=== PATIENT | female | born 1995 | race Caucasian/White ===

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

== ENCOUNTER 2017-01-05 12:09 | Emergency (ER) | payer OTHER ==
[~2017-01-05 12:09] MED LIST changes: +CLIN1CAP6 PO
--- NOTE | 2017-01-05 13:32 | PD ---
HPI Chief Complaint Spotting Date Seen: Jan 05, 2017 Time Seen: 13:15 (Reshma Cagle MD R1) Travel History International Travel<30 Days: No Contact w/Intl Traveler<30Days: No Known Affected Area: No (Reshma Cagle MD R1) History of Present Illness HPI Patient is a 21 y/o at 38 weeks and 2 days who presents to OB triage complaining of bright red spotting since yesterday. Patient was checked in OB office yesterday; she was told that her cervix had "thinned out" and provider was able to "fit two finger tips." Patient states that since the visit she has experienced some bright red, stringy mucus discharge, she had noticed when wiping. She denies vaginal bleeding, gush of fluids. She is unsure if she is experiencing contractions. She endorses movement. She complains of lower back pain and inner thigh cramps. She admits to increased frequency of urination. She denies burning with urination or blood in urine. She denies nausea and vomiting. She denies diarrhea and constipation. She denies fever and chills. She has received regular care. There have been no concerns during this . She was recently given clindamycin to treat a bacterial infection. On record, she is GBS positive. Para: 0 : 1 (Reshma Cagle MD R1) History Past Medical History Narrative Medical History of concussion History of depression - has not been on antidepressants for a year and a half ( Reshma Cagle MD R1) Obstetric History Obstetric History GI: Current, no complications (Reshma Cagle MD R1) Past Surgical History Surgical History: No Previous Surgery (Reshma Cagle MD R1) Family History Family History: Negative (Reshma Cagle MD R1) Social History Alcohol Use: No (not during , social drinker before ) Tobacco Use: Yes (1/2 pack/day) Substance Abuse: No (Reshma Cagle MD R1) Allergies-Medications (Allergen,Severity, Reaction): Coded Allergies: Penicillin (Verified Allergy, Mild, 01/04/17) [facility] Home Meds Active Scripts Clindamycin 300 Mg [id number] Mg PO TID #21 CAP Ref 0 Prov:Paulino Marinelli MD 01/04/17 Vit-Iron Carbonyl ( Plus Iron 29-1 mg)1 Tab Tab1 Tab PO DAILY #30 TAB Ref 0 Prov:Sanam Crespo DO 06/03/16 Review of Systems General / Constitutional: No: Fever, Chills HENT: Lightheadedness (when laying supine), No: Headaches Cardiovascular: No: Irregular Rhythm, Chest Pain or Discomfort, Palpitations, Tachycardia, Edema Respiratory: No: Short of Breath Gastrointestinal: No: Nausea, Vomiting, Diarrhea, Constipation Genitourinary: Frequency, No: Hematuria Musculoskeletal: No: Limited ROM, Weakness, Edema Skin: No Rash, No Itching Neurologic: No: Weakness Psychiatric: No: Anxiety, Depression (Reshma Cagle MD R1) Physical Exam wnl Narrative GENERAL: Well-nourished, well-developed patient. SKIN: Warm and dry. HEAD: Normocephalic and atraumatic. EYES: No scleral icterus. No injection or drainage. ENT: No nasal drainage noted. Mucous membranes pink. Airway patent. NECK: Supple, trachea midline. No JVD. CARDIOVASCULAR: Regular rate and rhythm without murmurs, gallops, or rubs. RESPIRATORY: Breath sounds equal bilaterally. No accessory muscle use. BREASTS: Bilateral exam showed no masses , no retractions, no nipple discharge. ABDOMEN/GI: Abdomen soft, non-tender, bowel sounds present, no rebound, no guarding Gravid to 38 weeks size GENITOURINARY: External Genitalia: intact and normal in appearance Cervix: Positioned toward right side Dilatation: 1 cm Effacement: 50% Station: -2 Presentation: Vertex Membranes: Intact Uterine Contractions: None FHT's: Category: 1 Baseline: 153 Reactive: Reactive Variability: Moderate Decels: None EXTREMITIES: No cyanosis or edema. BACK: Nontender without obvious deformity. No CVA tenderness. NEUROLOGICAL: Awake and alert. Motor and sensory grossly within normal limits. Five out of 5 muscle strength in all muscle groups. Normal speech. (Reshma Cagle MD R1) Data Data Vital Signs Reviewed: Yes (Reshma Cagle MD R1) [facility] Medical Record Reviewed: Yes Plan Patient is a 21 y/o at 38 weeks and 2 days who presents to OB triage complaining of bright red spotting since OB check yesterday. 1. Spotting in third trimester * monitoring - strip reassuring. * No contractions recorded. * No evidence of blood in vaginal vault on cervical exam. * Reassured patient and explained that she is likely passing her mucus plug indicating that she will go into labor sometime within the next two-three weeks. * Discharged home. * Follow-up with washer machine. (Reshma Cagle MD R1) Diagnosis Diagnosis: Primary Impression: Spotting affecting in third trimester Disposition: 01 DISCHARGE HOME Condition: Good Collaborating MD Comments Agree with care and patient was seen with resident (Gela Tavarez MD) Reshma Cagle MD R1 Jan 05, 2017 13:32 Gela Tavarez MD Jan 10, 2017 09:48
== END 2017-01-05 14:21 | disposition home or self-care (01) ==
LOC: HOBED 12:09
DX: O26.853 Spotting complicating pregnancy, third trimester (principal); Z3A.38 38 weeks gestation of pregnancy
CPT/HCPCS: 59025

== ENCOUNTER 2017-01-13 02:07 | Inpatient (IN) | payer OTHER ==
[2017-01-13] VITALS (61 sets, daily range): BP systolic 79–143; BP diastolic 40–92; PULSE 73–130; RESP 16–18; TEMP 97.6–100.2
[~2017-01-13] VITALS: Ht 165.1 cm; Wt 62.6 kg
[~2017-01-13 02:07] MED LIST changes: -CLIN1CAP6 PO
[2017-01-13] MEDS ORDERED: LACTATED RINGER'S 1000 ML INJ 1,000 ML IV PRN (02:48)
[2017-01-13] MEDS ORDERED: LACTATED RINGER'S 1000 ML INJ 1,000 ML IV SCH (02:48)
--- NOTE | 2017-01-13 02:50 | HHI.HP ---
History & Physical H&P HPI HPI Chief Complaint Rupture membranes and contractions Date Seen: Jan 13, 2017 Time Seen: 02:39 Travel History International Travel<30 Days: No Contact w/Intl Traveler<30Days: No Known Affected Area: No History of Present Illness HPI 21-year-old who is at 39 weeks and 4 days by her EDC comes in complaining of spontaneous rupture membranes about 1:00 in the morning with clear fluid per vagina accompanied by menstrual cramping that is occurring every 5 minutes. Patient is group B strep positive and has an allergy to penicillins which cause rash, otherwise uncomplicated course. Ultrasound performed 2 weeks ago showed the baby is 6-1/2 pounds Para: 0 : 1 History (Limited) History Past Medical History Medical History: Denies Significant Hx Past Surgical History Surgical History: No Previous Surgery Family History Family History: Negative Social History Alcohol Use: No Tobacco Use: Yes Substance Abuse: No Allergies-Medications Allergies-Medications (Allergen,Severity, Reaction): Coded Allergies: Penicillin (Verified Allergy, Mild, 01/11/17) [facility] Home Meds Active Scripts Vit-Iron Carbonyl ( Plus Iron 29-1 mg)1 Tab Tab1 Tab PO DAILY #30 TAB Ref 0 Prov:Sanam Crespo DO 06/03/16 Discontinued Scripts Clindamycin 300 Mg [id number] Mg PO TID #21 CAP Ref 0 Prov:Paulino Marinelli MD 01/04/17 ROS Review of Systems Except as stated in HPI: all other systems reviewed are Neg Physical Exam Physical Exam Narrative GENERAL: Well-nourished, well-developed patient. SKIN: Warm and dry. HEAD: Normocephalic and atraumatic. EYES: No scleral icterus. No injection or drainage. ENT: No nasal drainage noted. Mucous membranes pink. Airway patent. NECK: Supple, trachea midline. No JVD. CARDIOVASCULAR: Regular rate and rhythm without murmurs, gallops, or rubs. RESPIRATORY: Breath sounds equal bilaterally. No accessory muscle use. ABDOMEN/GI: Abdomen soft, non-tender, bowel sounds present, no rebound, no guarding Gravid to [-37] weeks size Fundal Height: [-] GENITOURINARY: External Genitalia: intact and normal in appearance BUS glands: [-Normal] Cervix: [-Posterior] Dilatation: 4 Effacement: 80 Station: -3 Presentation: Vertex Membranes: Rupturedclear fluid Uterine Contractions: [-Every 5 minutes] FHT's: Category: [-1] Baseline: [-140] Reactive: [-Minimal] Variability: [-Moderate] Decels: [-Absent] EXTREMITIES: No cyanosis or edema. BACK: Nontender without obvious deformity. No CVA tenderness. NEUROLOGICAL: Awake and alert. Motor and sensory grossly within normal limits. Five out of 5 muscle strength in all muscle groups. Normal speech. Data Data Data Vital Signs Reviewed: Yes MDM MDM Medical Record Reviewed: Yes Plan 21-year-old at 39 weeks 4 days comes in with spontaneous rupture membranes in early labor Group B strep positive we'll treat with cephalosporin as she is allergic to penicillin Diagnosis Diagnosis: Primary Impression: 39 weeks gestation of Additional Impressions: Rupture of membranes with clear amniotic fluid Positive testing for group B Streptococcus Tobacco use affecting in third trimester, antepartum Gela Tavarez MD Jan 13, 2017 02:50
[2017-01-13] MEDS ORDERED: LIDOCAINE HCL 1% 50 ML VIAL INFIL PRN (03:00)
[2017-01-13] MEDS ORDERED: ONDANSETRON HCL 4 MG/2 ML VIAL IV PRN (03:00)
[2017-01-13] MEDS ORDERED: SODIUM CHLORID 0.9% 500 ML INJ 500 ML IV PRN (03:00)
[2017-01-13] MEDS ORDERED: CITRIC ACID-SODIUM CITRATE LIQ 30 ML UDC PO SCH (03:00)
[2017-01-13] MEDS ORDERED: MINERAL OIL 10 ML VIAL TOPICAL PRN (03:00)
[2017-01-13] MEDS ORDERED: LIDOCAINE HCL 1% 50 ML VIAL I-DERMAL PRN (03:00)
[2017-01-13] MEDS ORDERED: ceFAZolin 2 GM PREMIX 50 ML IV ONE (03:00)
[2017-01-13] MEDS ORDERED: OXYTOCIN 30 UNITS-500ML PREMIX 500 ML IV ONE (03:00)
[2017-01-13] MEDS ORDERED: SODIUM CHLOR 0.9% 1000 ML INJ 1,000 ML IV PRN (03:08)
[2017-01-13 03:59] LABS: AUTOMATED NEUTROPHIL # 12.6 TH/MM3 (1.8-7.7); BASOPHIL # 0.1 TH/MM3 (0-0.2); BASOPHIL % 0.3 % (0.0-2.0); EOSINOPHIL % 0.2 % (0.0-4.0); HEMATOCRIT 31.8 % (35.0-46.0); HEMO FLAGS DIFF FINAL; LYMPH % 19.9 % (9.0-44.0); LYMPHOCYTE # 3.4 TH/MM3 (1.0-4.8); MEAN CELL VOLUME 83.3 FL (80.0-100.0); MEAN CORPUSCULAR HEMOGLOBIN 28.1 PG (27.0-34.0); MEAN CORPUSCULAR HGB CONC 33.7 % (32.0-36.0); MONO % 4.8 % (0.0-8.0); NEUT % 74.8 % (16.0-70.0); PLATELET COUNT 242 TH/MM3 (150-450); RED BLOOD COUNT 3.82 MIL/MM3 (4.00-5.30); RED CELL DISTRIBUTION WIDTH 12.5 % (11.6-17.2); WHITE BLOOD COUNT 16.9 TH/MM3 (4.0-11.0)
[2017-01-13 04:50] LABS: BLOOD, URINE TRACE (NEG); COMMENT (UR) CULTURE INDICATED; CULTURE IF INDICATED CULTURE INDICATED; GLUCOSE,URINE NEG (NEG); HYALINE CAST, URINE 2 /lpf (RARE); KETONE, URINE NEG (NEG); NITRITE,URINE NEG (NEG); SQUAMOUS EPITHELIAL CELL URINE 2 /hpf (0-5); URINE COLOR YELLOW (YELLW/STRAW)
[2017-01-13] MEDS ORDERED: ePHEDrine/NS 25 MG/5 ML SYR ONE (05:19)
[2017-01-13] MEDS ORDERED: fentaNYL 2MCG-BUPIV 0.125% INJ 100 ML ONE (05:19)
[2017-01-13] MEDS ORDERED: DO NOT ADMINISTER ANTICOAGULANTS PRN (06:00)
[2017-01-13] MEDS ORDERED: NO SYSTEM NARCOTICS PRN (06:00)
[2017-01-13] MEDS ORDERED: fentaNYL 2MCG-BUPIV 0.125% 100 ML EPIDURAL SCH (06:00)
[2017-01-13] MEDS ORDERED: ePHEDrine/NS 25 MG/5 ML SYR IV PRN (06:00)
[2017-01-13] MEDS ORDERED: OXYTOCIN 30 UNITS-500ML PREMIX 500 ML IV SCH ×2 (08:45→15:15)
--- NOTE | 2017-01-13 10:30 | PD.LABORPN ---
Subjective Subjective 21-year-old at 39 weeks 4 days presented with spontaneous rupture membranes in early labor Group B strep positive we'll treat with cephalosporin as she is allergic to penicillin Ultrasound performed 2 weeks ago showed the baby is 6-1/2 pounds Patient currently with epidural in place since 6 AM. Pitocin running since 8:45 AM. Patient is having regular contractions, but her pain is well-controlled with epidural. Discussed risks and benefits of IUPC placement. Uncomplicated IUPC placement performed. Objective Vital Signs Vital Signs Date Time Temp Pulse Resp B/P Pulse Ox O2 Delivery O2 Flow Rate FiO2 01/13/17 10:00 73 125/67 01/13/17 09:45 18 01/13/17 09:30 77 122/59 01/13/17 09:15 79 119/60 01/13/17 09:01 88 118/54 01/13/17 08:45 87 123/81 01/13/17 08:30 97.8 89 17 115/68 01/13/17 08:15 90 124/77 01/13/17 08:00 78 120/71 01/13/17 07:45 80 123/77 01/13/17 07:30 80 122/79 01/13/17 07:15 79 106/48 01/13/17 07:04 77 104/45 01/13/17 07:00 95 79/60 01/13/17 07:00 18 01/13/17 06:45 80 101/43 01/13/17 06:30 79 109/51 01/13/17 06:20 81 111/40 01/13/17 06:15 79 115/57 01/13/17 06:10 78 122/65 01/13/17 06:06 18 01/13/17 06:05 77 123/57 01/13/17 06:00 81 116/65 01/13/17 05:55 86 117/71 01/13/17 05:45 85 01/13/17 05:40 97 01/13/17 05:40 95 135/74 01/13/17 05:38 18 01/13/17 05:35 94 130/75 01/13/17 05:35 96 01/13/17 05:30 79 115/63 01/13/17 05:30 81 01/13/17 05:30 98.0 18 01/13/17 05:25 77 117/48 01/13/17 03:43 18 01/13/17 03:11 18 Objective Pelvic Exam: Cervix: Soft Dilatation: 5cm Effacement: 80% Station: -1 Presentation: Vertex Membranes: ruptured Uterine Contractions: q2-4min FHT's: Category: Cat I Baseline: 120 Reactive: reactive Variability: moderate Decels: none Assessment/Plan Problem List: (1) Positive testing for group B Streptococcus (2) with 39 completed weeks gestation (3) 39 weeks gestation of (4) Labor and delivery, indication for care (5) Labor and delivery indication for care or intervention Assessment and Plan 21-year-old at 39 weeks 4 days presented with spontaneous rupture membranes in early labor Patient currently with epidural in place since 6 AM. Pitocin running since 8:45 AM. Patient is having regular contractions, but her pain is well-controlled with epidural. Discussed risks and benefits of IUPC placement. Uncomplicated IUPC placement performed. Continue Ancef 1 g IV every 4 because GBS positive and penicillin allergy Continue epidural Continue Pitocin IV titration Monitor heart rate Monitor vital signs Monitor contractions d/w Dr. Tavarez. Edd Vásquez MD R1 Jan 13, 2017 10:30
[2017-01-13] MEDS ORDERED: ONDANSETRON ODT 4 MG TAB PO PRN (15:15)
[2017-01-13] MEDS ORDERED: ALUMINUM/MAGNESIUM/SIMETH 30 ML CUP PO PRN (15:15)
[2017-01-13] MEDS ORDERED: WITCH HAZEL 50%/GLYCERIN 12.5% 40 PAD JAR TOPICAL PRN (15:15)
[2017-01-13] MEDS ORDERED: oxyCODONE/ACETAMINOPHEN 5 MG/325 MG TAB PO PRN (15:15)
[2017-01-13] MEDS ORDERED: ZOLPIDEM TARTRATE 5 MG TAB PO PRN (15:15)
[2017-01-13] MEDS ORDERED: ACETAMINOPHEN 325 MG TAB PO PRN (15:15)
[2017-01-13] MEDS ORDERED: SODIUM CHLORIDE 0.9% FLUSH 10 ML FLUSH IV FLUSH PRN (15:15)
[2017-01-13] MEDS ORDERED: DOCUSATE SODIUM 50 MG/SENNA 8.6 MG TAB PO PRN (15:15)
[2017-01-13] MEDS ORDERED: BENZOCAINE 20% TOPICAL SPRAY 60 ML CAN TOPICAL PRN (15:15)
--- NOTE | 2017-01-13 15:15 | PD.OB.DELI ---
Delivery Date: Jan 13, 2017 Anesthesia: Epidural Episiotomy: None Vaginal Delivery: Normal Presentation: Occiput anterior Nuchal Cord: None Delayed cord clamping (45 sec): Yes Shoulder Dystocia: Suprapubic pressure given, Wood's screw maneuver done : Female One Minute : 8 Five Minute : 9 Weight: 3140g Placenta: Spontaneous delivery, Intact, 3 vessel cord Laceration: Vaginal laceration, 1 deg (vaginal), 2 deg (bilateral labial) Repair: Chromic running Estimated blood loss: 250-300ml Additional Information This is a 21-year-old at 39 weeks and 4 days who presented with complaints of SROM at 1 AM. She received an epidural at 6:45, Pitocin started 8: 45, and IUPC was placed at 9am. Patient progressed well through labor. Baby's head delivered by maternal effort. No nuchal cord noted. However there was some difficulty delivering the anterior shoulder. Attempts were made to deliver the posterior shoulder and then the anterior shoulder delivered spontaneously. Baby then delivered by maternal effort. Uncomplicated delivery of placenta with some terminal meconium noted. Bilateral second-degree periurethral lacerations on either side of the urethra; first-degree vaginal laceration. Repaired with running 2-0 chromic 1 and then 3-0 chromic 3. Delivery supervised by Dr. Alvarez. Delivered by Dr. Vásquez. (Edd Vásquez MD R1) Attestation I was present for the delivery and assisted with the repair. (Joyce Alvarez MD) Edd Vásquez MD R1 Jan 13, 2017 15:15 Joyce Alvarez MD Jan 13, 2017 15:23
[2017-01-13] MEDS ORDERED: DIPHTH/TETANUS/ACEL PERTUSSIS (BOOSTER) 0.5 ML VIAL/PFS IM ONE (16:00)
[2017-01-13] MEDS ORDERED: MEASLES, MUMPS, RUBELLA VACCINE 0.5 ML VIAL SQ ONE (16:00)
[2017-01-13] MEDS: IBUPROFEN 600 MG TAB PO PRN (16:59)
[2017-01-13 17:26] LABS: RAPID PLASMA REAGIN SCREEN NON-REACTIVE (NON-REACTVE)
[2017-01-13] MEDS ORDERED: SODIUM CHLORIDE 0.9% FLUSH 10 ML FLUSH IV FLUSH SCH (21:00)
[2017-01-14] MEDS: IBUPROFEN 600 MG TAB PO PRN ×3 (02:13→19:07)
[2017-01-14 08:15] VITALS: BP 116/74; PULSE 73; RESP 18; TEMP 98
--- NOTE | 2017-01-14 08:39 | HHI.OB ---
Subjective Post Day: 1 Remarks Patient is a 21-year-old delivered at 39 weeks and 3 days. Patient is day one after spontaneous vaginal delivery. Patient complains of vaginal pain at site of repair. Patient reports minimal bleeding. Patient reports eating and drinking without any nausea or vomiting. Patient has passed gas but has not had a bowel movement. Patient denies chest pain and shortness of breath. Patient has been ambulating; she denies lower extremity pain. Patient has decided to breast-feed. (Reshma Cagle MD R1) Objective Vitals/I&O Vital Signs Date Time Temp Pulse Resp B/P Pulse Ox O2 Delivery O2 Flow Rate FiO2 01/13/17 20:02 98.6 88 16 122/68 01/13/17 17:45 97.6 73 16 113/59 01/13/17 16:45 90 122/54 01/13/17 16:30 83 119/59 01/13/17 16:28 17 01/13/17 16:15 79 117/60 01/13/17 16:11 97.6 01/13/17 16:11 18 01/13/17 16:00 82 125/52 01/13/17 16:00 18 01/13/17 15:45 18 01/13/17 15:45 78 124/51 01/13/17 15:33 87 112/61 01/13/17 15:30 80 18 86/68 01/13/17 15:15 82 18 121/61 01/13/17 15:00 79 125/52 01/13/17 14:48 18 01/13/17 14:45 100.2 80 18 111/62 01/13/17 14:30 18 01/13/17 14:30 88 122/54 01/13/17 14:29 84 119/57 01/13/17 14:00 95 127/75 01/13/17 13:30 115 143/92 01/13/17 13:00 127 125/74 01/13/17 12:30 99 117/75 01/13/17 12:15 17 01/13/17 12:00 94 126/69 01/13/17 11:30 102 123/64 01/13/17 11:15 17 01/13/17 11:00 100 123/71 01/13/17 10:32 18 01/13/17 10:30 130 116/62 01/13/17 10:23 98.5 01/13/17 10:15 17 01/13/17 10:00 73 125/67 01/13/17 09:45 18 01/13/17 09:30 77 122/59 01/13/17 09:15 79 119/60 01/13/17 09:01 88 118/54 01/13/17 08:45 87 123/81 Objective Remarks GENERAL: Well-nourished, well-developed patient. CARDIOVASCULAR: Regular rate and rhythm without murmurs, gallops, or rubs. RESPIRATORY: Breath sounds equal bilaterally. No accessory muscle use. ABDOMEN/GI: Abdomen soft, non-tender. Fundus: Firm, non-tender at umbilicus. GENITOURINARY: Light to moderate bleeding. EXTREMITIES: No cyanosis or edema, non-tender, without signs of DVT. Medications and IVs Current Medications Medications (Trade) Dose Ordered Sig/Tejinder Route Start Time Stop Time Status Last Admin (NS Flush) 2 ml BID IV FLUSH 01/13/17 21:00 (NS Flush) 2 ml UNSCH PRN IV FLUSH 01/13/17 15:15 (Tylenol) 650 mg Q4H PRN PO 01/13/17 15:15 01/14/17 02:13 (Motrin) 600 mg Q6H PRN PO 01/13/17 15:15 01/14/17 02:13 (Percocet 5-325 Mg) 1 tab Q4H PRN PO 01/13/17 15:15 (Percocet 5-325 Mg) 2 tab Q4H PRN PO 01/13/17 15:15 (Americaine 20% Top Spr) 1 spray Q4H PRN TOPICAL 01/13/17 15:15 01/14/17 02:13 (Tucks Pads) 1 applic QID PRN TOPICAL 01/13/17 15:15 01/14/17 02:13 (Patsy-Colace) 2 tab Q12H PRN PO 01/13/17 15:15 (Ambien) 5 mg HS PRN PO 01/13/17 15:15 (Mag-Al Plus Susp Liq) 15 ml Q8H PRN PO 01/13/17 15:15 (Zofran Odt) 4 mg Q6H PRN PO 01/13/17 15:15 (Reshma Cagle MD R1) Assessment/Plan Assessment and Plan Patient is a 21-year-old delivered at 39 weeks and 3 days. Patient is day one after spontaneous vaginal delivery. * Continue routine care. * Motrin and Percocet when necessary for pain. * Encourage OOB. * Pelvic rest for 6 weeks will need follow-up appointment at that time. * Anticipate discharge tomorrow. (Reshma Cagle MD R1) Attending Attestation Agree with above. D/c home tomorrow. (Joyce Alvarez MD) Reshma Cagle MD R1 Jan 14, 2017 08:39 Joyce Alvarez MD Jan 14, 2017 08:49
[2017-01-14] MEDS: oxyCODONE/ACETAMINOPHEN 5 MG/325 MG TAB PO PRN ×4 (08:56→23:52)
[2017-01-14 19:27] VITALS: BP 128/70; PULSE 95; RESP 16; TEMP 99.1
[2017-01-15] MEDS: IBUPROFEN 600 MG TAB PO PRN ×2 (03:30→09:03)
[2017-01-15] MEDS: oxyCODONE/ACETAMINOPHEN 5 MG/325 MG TAB PO PRN (03:31)
[2017-01-15 08:40] VITALS: BP 109/68; PULSE 70; RESP 16; TEMP 97.7
--- NOTE | 2017-01-15 09:51 | HHI.OB ---
Subjective Post Day: 2 Remarks Patient is a 21-year-old delivered at 39 weeks and 3 days. Patient is day 2 after a spontaneous vaginal delivery. Patient's pain is well- controlled. Patient reports minimal bleeding. Patient reports eating and drinking without any nausea or vomiting. Patient has passed gas and has had a bowel movement. Patient denies chest pain and shortness of breath. Patient has been ambulating; she denies lower extremity pain. Patient has decided to breast- feeding but is supplementing with formula. Objective Vitals/I&O Vital Signs Date Time Temp Pulse Resp B/P Pulse Ox O2 Delivery O2 Flow Rate FiO2 01/14/17 19:27 99.1 95 16 128/70 Objective Remarks GENERAL: Well-nourished, well-developed patient. CARDIOVASCULAR: Regular rate and rhythm without murmurs, gallops, or rubs. RESPIRATORY: Breath sounds equal bilaterally. No accessory muscle use. ABDOMEN/GI: Abdomen soft, non-tender. Fundus: Firm, non-tender at umbilicus. GENITOURINARY: Light to moderate bleeding. EXTREMITIES: No cyanosis or edema, non-tender, without signs of DVT. Medications and IVs Current Medications Medications (Trade) Dose Ordered Sig/Tejinder Route Start Time Stop Time Status Last Admin (NS Flush) 2 ml BID IV FLUSH 01/13/17 21:00 (NS Flush) 2 ml UNSCH PRN IV FLUSH 01/13/17 15:15 (Tylenol) 650 mg Q4H PRN PO 01/13/17 15:15 01/14/17 02:13 (Motrin) 600 mg Q6H PRN PO 01/13/17 15:15 01/15/17 09:03 (Percocet 5-325 Mg) 1 tab Q4H PRN PO 01/13/17 15:15 01/15/17 09:03 (Percocet 5-325 Mg) 2 tab Q4H PRN PO 01/13/17 15:15 01/15/17 03:31 (Americaine 20% Top Spr) 1 spray Q4H PRN TOPICAL 01/13/17 15:15 01/14/17 02:13 (Tucks Pads) 1 applic QID PRN TOPICAL 01/13/17 15:15 01/14/17 02:13 (Patsy-Colace) 2 tab Q12H PRN PO 01/13/17 15:15 (Ambien) 5 mg HS PRN PO 01/13/17 15:15 (Mag-Al Plus Susp Liq) 15 ml Q8H PRN PO 01/13/17 15:15 (Zofran Odt) 4 mg Q6H PRN PO 01/13/17 15:15 Assessment/Plan Assessment and Plan Patient is a 21-year-old delivered at 39 weeks and 3 days. Patient is day two after spontaneous vaginal delivery. * Continue routine care. * Motrin and Percocet when necessary for pain. * Encourage OOB. * Pelvic rest for 6 weeks will need follow-up appointment at that time. * Anticipate discharge today. Reshma Cagle MD R1 Jan 15, 2017 09:51
[2017-01-15] MEDS ORDERED: IBUP-232 PO (09:52)
--- NOTE | 2017-01-15 09:53 | HHI.DCPOC ---
Discharge Care Plan Diagnosis: (1) Vaginal delivery Report Symptoms to Your Doctor -Temperature above 100.5 degrees -Redness, of incision or excessive or foul smelling drainage -Unusual pain or calf pain -Increased vaginal bleeding -Painful or difficulty urinating -Feelings of extreme sadness or anxiety after 2 weeks Directions to Meet Your Goals Take your medications as prescribed Follow your dietary instruction Follow activity as directed Ensure plenty of rest for recovery Drink fluids for hydration Keep your appointments as scheduled Take your immunizations and boosters as scheduled If your symptoms worsen call your PCP, if no PCP go to Urgent Care Center or Emergency Room Smoking is Dangerous to Your Health. Avoid second hand smoke Call the 24-hour crisis hotline for domestic abuse at Reshma Cagle MD R1 Jan 15, 2017 09:53
== END 2017-01-15 12:53 | disposition home or self-care (01) | DRG 775 ==
LOC: HOBED 02:07 → H2EB 02:39 → H1EA 17:20
PROVIDERS: ADMIT Obstetrics & Gynecology Obstetrics; ATTEND Obstetrics & Gynecology Obstetrics
PROC: 10E0XZZ Delivery of Products of Conception, External Approach (ICD-10-PCS; principal; 2017-01-13)
PROC: 0UQGXZZ Repair Vagina, External Approach (ICD-10-PCS; 2017-01-13)
PROC: 0UQMXZZ Repair Vulva, External Approach (ICD-10-PCS; 2017-01-13)
PROC: 0HQ9XZZ Repair Perineum Skin, External Approach (ICD-10-PCS; 2017-01-13)
PROC: 00HU33Z Insertion of Infusion Device into Spinal Canal, Percutaneous Approach (ICD-10-PCS; 2017-01-13)
PROC: 3E0R3CZ (ICD-10-PCS; 2017-01-13)
DX: O99.334 Smoking (tobacco) complicating childbirth (principal); F17.200 Nicotine dependence, unspecified, uncomplicated; O99.824 Streptococcus B carrier state complicating childbirth; O77.0 Labor and delivery complicated by meconium in amniotic fluid; O70.0 First degree perineal laceration during delivery; Z3A.39 39 weeks gestation of pregnancy; Z37.0 Single live birth; Z88.0 Allergy status to penicillin; O71.82 Other specified trauma to perineum and vulva; O66.0 Obstructed labor due to shoulder dystocia
CPT/HCPCS: 81001; 84112; 85025; 86403; 86592; 86900; 86901; 87086; 90715; J0690; J2590; J3010; J7120

== ENCOUNTER 2017-09-05 23:13 | Emergency (ER) | payer OTHER ==
[~2017-09-05] VITALS: Ht 165.1 cm; Wt 59.8 kg
[2017-09-05 23:18] VITALS: BP 127/60; PULSE 93; RESP 18; TEMP 98.6; O2SAT 100
[2017-09-06] MEDS ORDERED: DIVA500T3 PO (00:35)
[2017-09-06] MEDS ORDERED: BUPR100T4 PO (00:35)
[2017-09-06] MEDS ORDERED: CYCL10TA PO (00:38)
[2017-09-06] MEDS ORDERED: PRED20 PO (00:38)
--- NOTE | 2017-09-06 00:38 | PD ---
HPI Chief Complaint: Musculoskeletal Complaint Time Seen by Provider: 00:22 Travel History International Travel<30 days: No Contact w/Intl Traveler<30days: No Traveled to known affect area: No History of Present Illness HPI The patient is a 21-year-old female who presents to the emergency department for left scapula and left-sided neck pain. The patient has had intermittent pain since age of 16 over the left upper back into the left neck. The patient states the pain has been present for the last 2 weeks, is worse with certain repetitive movements such as lifting boxes at work, [employer], and has not been alleviated with the use of [id number] Advil. The patient states her nares are tender to palpation, worse with certain movements, but denies any trauma to the affected area. She denies any radiation of the pain down the left upper extremity denies any weakness or numbness of the upper extremities. Symptoms are moderate. PFSH Past Medical History Depression: Yes Diminished Hearing: No Immunizations Current: Yes : 1 Social History Alcohol Use: No Tobacco Use: Yes Substance Use: No Allergies-Medications (Allergen,Severity, Reaction): Coded Allergies: penicillin G (Unverified Allergy, Mild, 01/26/17) RASH Reported Meds & Prescriptions Reported Meds & Active Scripts Active Plus Iron 29-1 mg ( Vit-Iron Carbonyl) 1 Tab Tab 1 Tab PO DAILY Review of Systems Except as stated in HPI: all other systems reviewed are Neg HENT: Positive: Neck Pain, No: Headaches Musculoskeletal: Positive: Pain, No: Limited ROM, Weakness Neurologic: No: Paresthesia, Sensory Disturbance Physical Exam Narrative GENERAL: Awake, alert, pleasant 21-year-old female who appears her stated age and is in no acute respiratory distress. SKIN: Focused skin assessment warm/dry. HEAD: Atraumatic. Normocephalic. EYES: No injection or drainage. NECK: Trachea midline. No JVD. Tenderness of the left trapezius and left paravertebral muscle. CARDIOVASCULAR: Regular rate and rhythm. No murmur appreciated. RESPIRATORY: No accessory muscle use. Clear to auscultation. Breath sounds equal bilaterally. Back: Tenderness over the left rhomboids, palpation of the affected muscles reproduces symptoms. MUSCULOSKELETAL: No obvious deformities. No clubbing. No cyanosis. No edema. Positive left radial pulse. Intrinsic hand muscles are intact left upper extremity. NEUROLOGICAL: Awake and alert. No obvious cranial nerve deficits. Motor grossly within normal limits. Normal speech. PSYCHIATRIC: Appropriate mood and affect; insight and judgment normal. Data Data Last Documented VS Vital Signs Date Time Temp Pulse Resp B/P (MAP) Pulse Ox O2 Delivery O2 Flow Rate FiO2 09/05/17 23:18 98.6 93 18 127/60 (82) 100 Orders Orders Prednisone (Deltasone) (09/06/17 00:45) [facility] Medical Decision Making Medical Screen Exam Complete: Yes Emergency Medical Condition: Yes Medical Record Reviewed: Yes Differential Diagnosis Differential diagnosis includes musculoskeletal pain, rhomboid strain, trapezius strain, subclavian steal syndrome, radiculopathy. Narrative Course The patient's pain is reproducible, appears to be musculoskeletal over the left trapezius and left rhomboids. The patient was administered prednisone 60 mg orally. The patient will be placed on prednisone and Flexeril, is advised to apply icy hot of the affected area, to have massage therapy to the affected area. Diagnosis Primary Impression: Rhomboid muscle strain Qualified Codes: S29.012A - Strain of muscle and tendon of back wall of thorax , initial encounter Additional Impression: Trapezius strain Qualified Codes: S46.812A - Strain of other muscles, fascia and tendons at shoulder and upper arm level, left arm, initial encounter Patient Instructions: General Instructions Additional Instructions: Medications as directed. Icy hot to the affected area. Follow-up with your primary physician. Return if symptoms worsen or progress. Med/Other Pt SpecificInfo: Prescription(s) given Scripts Cyclobenzaprine (Flexeril) 10 Mg Tab 10 MG PO TID for Muscle Spasm for 10 Days, #30 TAB 0 Refills Prov: William Rivera MD 09/06/17 Prednisone (Prednisone) 20 Mg Tab 40 MG PO DAILY, #10 TAB 0 Refills Take 40 mg (2 tablets) daily for 5 days Prov: William Rivera MD 09/06/17 Disposition: 01 DISCHARGE HOME Condition: Stable William Rivera MD Sep 06, 2017 00:38
[2017-09-06] MEDS ORDERED: predniSONE 20 MG TAB PO ONE (00:45)
== END 2017-09-06 01:23 | disposition home or self-care (01) ==
LOC: PHED 23:13
DX: S29.012A Strain of muscle and tendon of back wall of thorax, initial encounter (principal); S46.812A Strain of other muscles, fascia and tendons at shoulder and upper arm level, left arm, initial encounter; F32.9 Major depressive disorder, single episode, unspecified; X50.3XXA Overexertion from repetitive movements, initial encounter; Y92.512 Supermarket, store or market as the place of occurrence of the external cause; Y99.0 Civilian activity done for income or pay; Z72.0 Tobacco use; Z88.0 Allergy status to penicillin
CPT/HCPCS: 99283; J7512

== ENCOUNTER 2017-09-13 14:37 | Emergency (ER) | payer OTHER ==
[~2017-09-13] VITALS: Ht 165.1 cm; Wt 54.5 kg
[~2017-09-13 14:37] MED LIST changes: +BUPR100T4 PO; +CYCL10TA PO; +DIVA500T3 PO; +PRED20 PO; -PREN29TA PO
[2017-09-13 15:06] VITALS: BP 132/79; PULSE 97; RESP 18; TEMP 98.8; O2SAT 100
[2017-09-13 16:45] VITALS: BP 116/56; PULSE 84; RESP 18; TEMP 98.8; O2SAT 100
[2017-09-13 16:45] LABS: BACTERIA, URINE RARE /hpf; BILIRUBIN, URINE NEG (NEG); BLOOD, URINE NEG (NEG); GLUCOSE,URINE NEG (NEG); KETONE, URINE NEG (NEG); MUCUS URINE MOD /lpf (OCC); NITRITE,URINE NEG (NEG); SQUAMOUS EPITHELIAL CELL URINE 7 /hpf (0-5); URINE COLOR YELLOW (YELLW/STRAW); URINE LEUKOCYTE ESTERASE TRACE (NEG)
--- NOTE | 2017-09-13 16:50 | PD ---
HPI Chief Complaint: Related Problem Time Seen by Provider: 16:50 Travel History International Travel<30 days: No Contact w/Intl Traveler<30days: No Traveled to known affect area: No History of Present Illness HPI 21-year-old female presents emergency department with history of having her IUD removed 2 months ago. Patient states she had a light period 1 month ago, and now is having cramping and light spotting today. She took a over -the-counter test, but was unsure if it was positive or not. She is here as she states her [employer] physician will not see her without a positive test. She states her cramping was a 6 out of 10 earlier but now is about a 4 out of 10. She has very minimal spotting today. She has no other complaints. She has allergies to penicillin per [facility] Past Medical History Bipolar Disorder: Yes Depression: Yes Diminished Hearing: No Immunizations Current: Yes Tetanus Vaccination: < 5 Years Influenza Vaccination: Yes ?: Unknown LMP: 2017 : 1 Para: 1 Past Surgical History Surgical History: No Previous Surgery Social History Alcohol Use: No Tobacco Use: Yes (06/15 PPD) Substance Use: No Allergies-Medications (Allergen,Severity, Reaction): Coded Allergies: penicillin G (Verified Allergy, Mild, 09/06/17) RASH Penicillins (Verified Allergy, Unknown, 09/13/17) Reported Meds & Prescriptions Reported Meds & Active Scripts Active No Active Prescriptions or Reported Medications Review of Systems Except as stated in HPI: all other systems reviewed are Neg General / Constitutional: No: Fever Eyes: No: Visual changes HENT: No: Headaches Cardiovascular: No: Chest Pain or Discomfort Respiratory: No: Shortness of Breath Gastrointestinal: No: Abdominal Pain Genitourinary: Positive: Pelvic Pain (Mild cramping per), Vaginal Bleeding ( Minimal spotting), No: Dysuria Musculoskeletal: No: Pain Skin: No Rash Neurologic: No: Weakness Psychiatric: No: Depression Endocrine: No: Polydipsia Hematologic/Lymphatic: No: Easy Bruising Physical Exam Narrative GENERAL: Patient appears in no acute distress per SKIN: Warm and dry. Normal color. Normal turgor per HEAD: Atraumatic. Normocephalic. EYES: Pupils equal and round. No scleral icterus. No injection or drainage. ENT: No nasal bleeding or discharge. Mucous membranes pink and moist. NECK: Trachea midline. Supple nontender.. CARDIOVASCULAR: Regular rate and rhythm. RESPIRATORY: No accessory muscle use. Clear to auscultation. Breath sounds equal bilaterally. GASTROINTESTINAL: Abdomen soft, non-tender, nondistended. Hepatic and splenic margins not palpable. No CVA tenderness. MUSCULOSKELETAL: Extremities without clubbing, cyanosis, or edema. No obvious deformities. NEUROLOGICAL: Awake and alert. No obvious cranial nerve deficits. Motor grossly within normal limits. Five out of 5 muscle strength in the arms and legs. Normal speech. PSYCHIATRIC: Appropriate mood and affect; insight and judgment normal. Data Data Last Documented VS Vital Signs Date Time Temp Pulse Resp B/P (MAP) Pulse Ox O2 Delivery O2 Flow Rate FiO2 09/13/17 16:45 98.8 84 18 116/56 (76) 100 Room Air Orders Orders Urinalysis - C+S If Indicated (09/13/17 15:08) Ed Urine Pregnancytest Poc (09/13/17 15:08) Beta Hcg (Quant/Titer) (09/13/17 16:53) Us Pelvis (Ques Pr/Ect)W Trans (09/13/17 ) Labs Laboratory Tests Test 09/13/17 16:01 Urine Color YELLOW Urine Turbidity CLEAR Urine pH 6.0 Urine Specific [place] 1.033 Urine Protein TRACE mg/dL Urine Glucose (UA) NEG mg/dL Urine Ketones NEG mg/dL Urine Occult Blood NEG Urine Nitrite NEG Urine Bilirubin NEG Urine Urobilinogen LESS THAN 2.0 MG/DL Urine Leukocyte Esterase TRACE Urine RBC 2 /hpf Urine WBC 2 /hpf Urine Squamous Epithelial Cells 7 /hpf Urine Bacteria RARE /hpf Urine Mucus MOD /lpf Microscopic Urinalysis Comment CULT NOT INDICATED MDM Medical Decision Making Medical Screen Exam Complete: Yes Emergency Medical Condition: Yes Medical Record Reviewed: Yes Differential Diagnosis Early . Threatened . Ectopic Narrative Course Urine test is positive in triage. Serum hCG is ordered. Pelvic ultrasound is ordered. 1900 hrs. care of the patient be turned over to Emilee Mendoza nurse practitioner. Final disposition will be determined by her. Scripts No Active Prescriptions or Reported Meds Condition: Stable José Smith Sep 13, 2017 16:50
[2017-09-13 19:06] VITALS: BP 127/60; PULSE 78; RESP 16; O2SAT 100
--- NOTE | 2017-09-13 21:01 | RADRPT ---
EXAM DATE/TIME: 09/13/2017 17:35 [place] COMPARISON: No previous studies available for comparison. INDICATIONS : Cramping and spotting. LAB(S): Beta-hC MEDICAL HISTORY : . SURGICAL HISTORY : None. ENCOUNTER: Initial ACUITY: 2 days PAIN SCORE: 2/10 LOCATION: Bilateral pelvis MEASUREMENTS: UTERUS: 9.2 x 5.9 x 4.9 cm ENDOMETRIAL STRIPE: >20 mm RIGHT OVARY: 3.9 x 3.3 x 1.8 cm LEFT OVARY: 4.4 x 3.9 x 2.2 cm FREE FLUID: Yes CROWN RUMP LENGTH: Not visualized. = WKS DAYS FHR: Not visualized. BPM FINDINGS: Endometrium is thickened up to 2 cm but no intrauterine is identified. Left ovary is comple x cystic area with some peripheral vascularity, probably a corpus luteum cyst. Small amount of free f luid in the cul-de-sac. Right ovary unremarkable. CONCLUSION: 1. No intrauterine identified. A complex cystic lesion left ovary is indeterminant but coul d represent a corpus luteum cyst. Close followup sonographic imaging recommended if beta-hCG level in creases. Arpit Jimenez MD on September 13, 2017 at 20:56 Board Certified Radiologist. This report was verified electronically.
--- NOTE | 2017-09-13 21:28 | PD ---
Physical Exam Date Seen by Provider: Sep 13, 2017 Time Seen by Provider: 21:23 Narrative For full history and physical examination please see previous providers note. I assumed care of this patient change his shift. At that time an ultrasound of the pelvis was pending. Data Data Last Documented VS Vital Signs Date Time Temp Pulse Resp B/P (MAP) Pulse Ox O2 Delivery O2 Flow Rate FiO2 09/13/17 19:06 78 16 127/60 (82) 100 Room Air 09/13/17 16:45 98.8 Orders Orders Urinalysis - C+S If Indicated (09/13/17 15:08) Ed Urine Pregnancytest Poc (09/13/17 15:08) Beta Hcg (Quant/Titer) (09/13/17 16:53) Us Pelvis (Ques Pr/Ect)W Trans (09/13/17 ) Labs Laboratory Tests Test 09/13/17 16:01 09/13/17 19:00 Urine Color YELLOW Urine Turbidity CLEAR Urine pH 6.0 Urine Specific [place] 1.033 Urine Protein TRACE mg/dL Urine Glucose (UA) NEG mg/dL Urine Ketones NEG mg/dL Urine Occult Blood NEG Urine Nitrite NEG Urine Bilirubin NEG Urine Urobilinogen LESS THAN 2.0 MG/DL Urine Leukocyte Esterase TRACE Urine RBC 2 /hpf Urine WBC 2 /hpf Urine Squamous Epithelial Cells 7 /hpf Urine Bacteria RARE /hpf Urine Mucus MOD /lpf Microscopic Urinalysis Comment CULT NOT INDICATED Human Chorionic Gonadotropin, Quant 78 MIU/ML [facility] Medical Record Reviewed: Yes Supervised Visit with DEV: No Interpretation(s) Last Impressions Pelvis Ultrasound 09/13/17 0000 Signed Impressions: Service Date/Time: Wednesday, September 13, 2017 17:35 - CONCLUSION: 1. No intrauterine identified. A complex cystic lesion left ovary is indeterminant but could represent a corpus luteum cyst. Close followup sonographic imaging recommended if beta-hCG level increases. Arpit Jimenez MD Laboratory Tests Test 09/13/17 16:01 09/13/17 19:00 Urine Color YELLOW Urine Turbidity CLEAR Urine pH 6.0 Urine Specific [place] 1.033 Urine Protein TRACE mg/dL Urine Glucose (UA) NEG mg/dL Urine Ketones NEG mg/dL Urine Occult Blood NEG Urine Nitrite NEG Urine Bilirubin NEG Urine Urobilinogen LESS THAN 2.0 MG/DL Urine Leukocyte Esterase TRACE Urine RBC 2 /hpf Urine WBC 2 /hpf Urine Squamous Epithelial Cells 7 /hpf Urine Bacteria RARE /hpf Urine Mucus MOD /lpf Microscopic Urinalysis Comment CULT NOT INDICATED Human Chorionic Gonadotropin, Quant 78 MIU/ML Vital Signs Date Time Temp Pulse Resp B/P (MAP) Pulse Ox O2 Delivery O2 Flow Rate FiO2 09/13/17 19:06 78 16 127/60 (82) 100 Room Air 09/13/17 16:45 98.8 84 18 116/56 (76) 100 Room Air 09/13/17 16:45 84 18 09/13/17 15:06 98.8 97 18 132/79 (96) 100 Narrative Course For full H&P please see previous providers note. Urinalysis is unremarkable, hCG is 78. Pelvic ultrasound No intrauterine identified. A complex cystic lesion left ovary is indeterminant but could represent a corpus luteum cyst. Close followup sonographic imaging recommended if beta-hCG level increases. Discussed findings with my attending physician. Patient was advised to return to emergency department 48 hours for repeat testing. She was advised to return to emergency department immediately for any new worsening abdominal pain. Patient verbalized understanding of discharge instructions as well as need for close follow-up. Patient stable for discharge. Diagnosis Primary Impression: Spotting in early Referrals: [facility] Patient Instructions: Abdominal Pain in (ED), Ectopic (ED) , First Trimester (ED), General Instructions Additional Instruction: Return to emergency Department in 48 hours for repeat testing Return to emergency department immediately for any new or worsening abdominal pain or concerning symptoms Follow-up with your primary doctor Med/Other Pt SpecificInfo: No Change to Meds Scripts No Active Prescriptions or Reported Meds Disposition: 01 DISCHARGE HOME Condition: Stable Emilee Key Sep 13, 2017 21:28
== END 2017-09-13 21:53 | disposition home or self-care (01) ==
LOC: NED 14:37 → NEPD 21:53
DX: O26.851 Spotting complicating pregnancy, first trimester (principal); Z3A.01 Less than 8 weeks gestation of pregnancy
CPT/HCPCS: 76700; 76817; 81001; 84702; 84703

== ENCOUNTER 2017-10-06 20:32 | Emergency (ER) | payer OTHER ==
[2017-10-06 22:23] LABS: BILIRUBIN, URINE NEG (NEG); BLOOD, URINE TRACE (NEG); GLUCOSE,URINE NEG (NEG); KETONE, URINE NEG (NEG); NITRITE,URINE NEG (NEG); PH, URINE 7.5 (5.0-8.5); URINE COLOR YELLOW (YELLW/STRAW); URINE LEUKOCYTE ESTERASE SMALL (NEG)
[2017-10-06 22:27] LABS: BACTERIA, URINE MOD /hpf; COMMENT (UR) CULTURE INDICATED; CULTURE IF INDICATED CULTURE INDICATED; RBC, URINE 0-2 /hpf (0-3)
== END 2017-10-06 22:59 | disposition home or self-care (01) ==
LOC: PHED 20:32
DX: O23.40 Unspecified infection of urinary tract in pregnancy, unspecified trimester (principal); B96.20 Unspecified Escherichia coli [E. coli] as the cause of diseases classified elsewhere; F17.210 Nicotine dependence, cigarettes, uncomplicated
CPT/HCPCS: 81001; 87077; 87086; 87186; 99284

== ENCOUNTER 2017-12-07 17:57 | Emergency (ER) | payer OTHER ==
[~2017-12-07] VITALS: Ht 165.1 cm; Wt 56.7 kg
[~2017-12-07 17:57] MED LIST changes: -BUPR100T4 PO; -CYCL10TA PO; -DIVA500T3 PO; +MACR100C2 PO; -PRED20 PO
[2017-12-07 18:26] VITALS: BP 113/55; PULSE 92; RESP 14; TEMP 99.6; O2SAT 99
[2017-12-07 18:42] LABS: BILIRUBIN, URINE NEG (NEG); BLOOD, URINE NEG (NEG); GLUCOSE,URINE NEG (NEG); KETONE, URINE TRACE mg/dL (NEG); NITRITE,URINE NEG (NEG); URINE COLOR YELLOW (YELLW/STRAW); URINE LEUKOCYTE ESTERASE TRACE (NEG)
[2017-12-07 18:50] LABS: BACTERIA, URINE FEW /hpf; CALCIUM OXALATE CRYSTALS,URINE MOD /hpf; RBC, URINE 0-3 /hpf (0-3); SQUAMOUS EPITHELIAL CELL URINE 0-5 /hpf (0-5)
== END 2017-12-07 20:30 | disposition left against medical advice (07) ==
LOC: PHED 17:57
DX: R10.9 Unspecified abdominal pain (principal)
CPT/HCPCS: 81001; 84703; 87086; 99281

== ENCOUNTER 2018-05-27 12:13 | Inpatient (IN) ==
[2018-05-27] MEDS ORDERED: Oxytocin 30 Units/500ml Premix 30 UNITS/500 ML BAG IV.SIG ONE (12:55)
[2018-05-27] MEDS ORDERED: Sodium Chlor 0.9% Inj 500 ML IV.SIG PRN (12:55)
[2018-05-27] MEDS ORDERED: fentaNYL Citrate Inj 100 MCG/2 ML Ampul IV.PUSH PRN ×2 (12:55)
[2018-05-27] MEDS ORDERED: Sod Chloride 0.9% Inj 1,000 ML IV.CONT PRN (12:55)
[2018-05-27] MEDS ORDERED: Naloxone Inj 0.4 MG/ML Vial IV.PUSH PRN ×2 (12:55→20:20)
[2018-05-27] MEDS ORDERED: Citric Acid/Sodium Citrate Liq 30 ML UDC PO SCH (13:00)
--- NOTE | 2018-05-27 13:00 | P.HPOB ---
History of Present Illness Primary Care Physician: Shaquille Hall Chief Complaint: Contraction pain History of Present Illness: Patient is a 22-year-old white female at 40 weeks who [facility] and was seen yesterday. She presents today complaining of contractions after they stripped her membranes yesterday in the office. She had some spotting but no leakage of fluid. Contractions are every 5 minutes and her heart rate tracing is reactive Weeks Gestation:: 40 Para: 1 : 2 Review of Systems All other systems reviewed negative except as stated in HPI PMFSH - History History Provided By: Patient - Medical History Medical History: Medical History (Last Reviewed 02/05/18 @ 15:55 by AIMEE Ordonez) Patient denies medical problems - Surgical History Surgical History: Surgical History (Last Reviewed 02/05/18 @ 15:55 by AIMEE Ordonez) No history of previous surgery - Social History I have reviewed the patient's Social History: Yes - Tobacco History Smoking Status: Never smoker - Alcohol History How Often Do You Have a Drink Containing Alcohol: Never - Substance Use History Substance History: No History of Abuse - Travel History History of Recent Travel: No Recent Travel in the [place] Within the Last 8 Weeks: No Recent Travel Out of the Country Within the Last 8 Weeks: No Medications and Allergies Allergies Allergy/AdvReac Type Severity Reaction Status Date / Time penicillin G Allergy Mild RASH Verified 05/27/18 12:58 Penicillins Allergy Unknown RASH Verified 05/27/18 12:58 Exam Vital signs: Vital Signs 05/27/18 12:27 Temperature 97.5 F L Pulse Rate 90 Respiratory Rate 18 Blood Pressure 126/82 Narrative: GENERAL: Well-nourished, well-developed patient. SKIN: Warm and dry. HEAD: Normocephalic and atraumatic. EYES: No scleral icterus. No injection or drainage. ENT: No nasal drainage noted. Mucous membranes pink. Airway patent. NECK: Supple, trachea midline. No JVD. CARDIOVASCULAR: Regular rate and rhythm without murmurs, gallops, or rubs. RESPIRATORY: Breath sounds equal bilaterally. No accessory muscle use. BREASTS: Bilateral exam showed no masses , no retractions, no nipple discharge. ABDOMEN/GI: Abdomen soft, non-tender, bowel sounds present, no rebound, no guarding Gravid to [40-] weeks size Fundal Height: [40-] GENITOURINARY: External Genitalia: intact and normal in appearance BUS glands: [-] Cervix: [-mid] Dilatation: [-5] Effacement: [70-] Station: [-1] Presentation: [vtx-] Membranes: [intact Uterine Contractions: [q 5 min-] FHT's: Category: [1-] Baseline: [-134] Reactive: [-R] Variability: [mod-] Decels: [0-] + accels EXTREMITIES: No cyanosis or edema. BACK: Nontender without obvious deformity. No CVA tenderness. NEUROLOGICAL: Awake and alert. Motor and sensory grossly within normal limits. Five out of 5 muscle strength in all muscle groups. Normal speech. Results - Labs Group B Strep: Negative Caprini VTE Risk Assessment Caprini VTE Risk Assessment: No/Low Risk (score <= 1) Caprini Risk Assessment Model: Point Value = 1 Point Value = 2 Point Value = 3 Point Value = 5 Age 41-60 Minor surgery BMI > 25 kg/m2 Swollen legs Varicose veins or History of unexplained or recurrent spontaneous Oral contraceptives or hormone replacement Sepsis (< 1 month) Serious lung disease, including pneumonia (< 1 month) Abnormal pulmonary function Acute myocardial infarction Congestive heart failure (< 1 month) History of inflammatory bowel disease Medical patient at bed rest Age 61-74 Arthroscopic surgery Major open surgery (> 45 min) Laparoscopic surgery (> 45 min) Malignancy Confined to bed (> 72 hours) Immobilizing plaster cast Central venous access Age >= 75 History of VTE Family history of VTE Factor V Leiden Prothrombin [id number] Lupus anticoagulant Anticardiolipin antibodies Elevated serum homocysteine Heparin-induced thrombocytopenia Other congenital or acquired thrombophilia Stroke (< 1 month) Elective arthroplasty Hip, pelvis, or leg fracture Acute spinal cord injury (< 1 month) Prophylaxis Regimen: Total Risk Factor Score Risk Level Prophylaxis Regimen 0-1 Low Early ambulation 2 Moderate Order ONE of the following: *Sequential Compression Device (SCD) *Heparin 5000 units SQ BID 3-4 Higher Order ONE of the following medications: *Heparin 5000 units SQ TID *Enoxaparin/Lovenox 40 mg SQ daily (WT < 150 kg, CrCl > 30 mL/min) *Enoxaparin/Lovenox 30 mg SQ daily (WT < 150 kg, CrCl > 10-29 mL/min) *Enoxaparin/Lovenox 30 mg SQ BID (WT < 150 kg, CrCl > 30 mL/min) AND/OR *Sequential Compression Device (SCD) 5 or more Highest Order ONE of the following medications: *Heparin 5000 units SQ TID (Preferred with Epidurals) *Enoxaparin/Lovenox 40 mg SQ daily (WT < 150 kg, CrCl > 30 mL/min) *Enoxaparin/Lovenox 30 mg SQ daily (WT < 150 kg, CrCl > 10-29 mL/min) *Enoxaparin/Lovenox 30 mg SQ BID (WT < 150 kg, CrCl > 30 mL/min) AND *Sequential Compression Device (SCD) Assessment and Plan - Diagnosis (1) Uterine contractions during Code(s): O62.2 - Other uterine inertia Status: Acute (2) 40 weeks gestation of Code(s): Z3A.40 - 40 weeks gestation of Status: Acute - Plan Plan for this multiparous patient at 40 weeks in early labor to be admitted to the labor floor, labor managed appropriately, augment labor as needed P as needed and anticipate vaginal delivery she would like an epidural for pain relief
[2018-05-27 13:57] LABS: Baso % (Auto) 0.3 % (0.0-2.0); Eos % (Auto) 0.3 % (0.0-4.0); Hematocrit 31.6 % (35.0-46.0); Hemoglobin 10.5 gm/dL (11.6-15.3); Lymph # (Auto) 2.8 th/mm3 (1.0-4.8); Lymph % (Auto) 23.7 % (9.0-44.0); Mean Corpuscular HGB Conc 33.2 % (32.0-36.0); Mean Corpuscular Hemoglobin 27.7 pg (27.0-34.0); Mean Corpuscular Volume 83.5 fL (80.0-100.0); Mean Platelet Volume 8.2 fL (7.0-11.0); Mono # (Auto) 0.5 th/mm3 (0.0-0.9); Mono % (Auto) 4.5 % (0.0-8.0); Neut # (Auto) 8.5 th/mm3 (1.8-7.7); Neut % (Auto) 71.2 % (16.0-70.0); Platelet Count 195 th/mm3 (150-450); Red Blood Count 3.79 mil/mm3 (4.00-5.30); Red Cell Distribution Width 12.6 % (11.6-17.2); White Blood Count 11.9 th/mm3 (4.0-11.0)
[2018-05-27] MEDS ORDERED: fentaNYL 2MCG-Bupiv 0.125% Epi 150 ML EPIDURAL ONE (14:18)
[2018-05-27 14:52] LABS: Bilirubin,Urine Negative (Negative); Clarity,Urine Hazy (Clear); Glucose,Urine (UA) Negative (Negative); Leukocyte Esterase,Urine Small (Negative); Mucus,Urine Moderate /lpf (Occasional); Nitrite,Urine Negative (Negative); Specific Gravity,Urine 1.023 (1.002-1.035); Squamous Epithelial Cell,Urine 4 /hpf (0-5)
[2018-05-27] MEDS ORDERED: fentaNYL Citrate Inj 100 MCG/2 ML Ampul EPIDURAL ONE (14:52)
[2018-05-27] MEDS ORDERED: fentaNYL 2MCG-Bupiv 0.125% Epi 150 ML EPIDURAL PRN (14:52)
[2018-05-27 14:54] LABS: Color,Urine Yellow (Yellw/Straw)
[2018-05-27] MEDS ORDERED: Lidocaaine 1.5%/Epinephrine 1:200,000 PF Inj 5 ML Amp ONE (14:55)
[2018-05-27 15:19] LABS: Amphetamine Urine With Conf Neg (Neg); Benzodiazepine Urine With Conf Neg (Neg); Cocaine Urine With Conf Neg (Neg); Opiates Urine With Conf Neg (Neg)
[2018-05-27 15:23] LABS: Cannabinoid Urine With Conf Neg (Neg)
--- NOTE | 2018-05-27 15:40 | P.OBLABOR ---
Subjective Interval history: Pt doing well. No complains at this time. Feeling better after epidural. Objective Vital Signs: Vital Signs - 8 hr 05/27/18 12:27 05/27/18 14:23 05/27/18 14:25 Temperature 97.5 F L Pulse Rate 90 86 Respiratory Rate 18 18 Blood Pressure 126/82 119/66 05/27/18 14:30 05/27/18 14:40 05/27/18 14:45 Temperature Pulse Rate 92 H 96 H 97 H Respiratory Rate Blood Pressure 129/70 129/74 121/63 05/27/18 14:50 05/27/18 14:55 05/27/18 15:20 Temperature Pulse Rate 95 H 95 H 98 H Respiratory Rate Blood Pressure 125/71 110/80 130/62 05/27/18 15:25 05/27/18 15:30 Temperature Pulse Rate 84 82 Respiratory Rate 18 Blood Pressure Objective: AROM at 15:30 w/ clear fluids Cervix: 5cm/80%/-3 Assessment and Plan - Plan Continue management of labor. Ancipitate Vaginal delivery
[2018-05-27] MEDS ORDERED: Diphtheria/Tetanus/Pertussis Vaccine Inj 0.5 ML Syringe IM ONE (16:00)
[2018-05-27] MEDS ORDERED: Measles/Mumps/Rubella Vaccine Inj 0.5 ML Vial SQ ONE (16:00)
[2018-05-27] MEDS ORDERED: Oxytocin 30 Units/500ml Premix 30 UNITS/500 ML BAG IV.SIG PRN (17:30)
[2018-05-27] MEDS ORDERED: Oxytocin 30 Units/500ml Premix 30 UNITS/500 ML BAG IV.CONT PRN (20:20)
[2018-05-27] MEDS ORDERED: Witch Hazel 50%/Glyderin 12.5% 40 Pad Jar RECTAL PRN (20:20)
[2018-05-27] MEDS ORDERED: Acetaminophen 325 MG Tablet PO PRN (20:20)
[2018-05-27] MEDS ORDERED: Benzocaine 20% Top Spray 60 ML Can TOPICAL PRN (20:20)
--- NOTE | 2018-05-27 20:23 | P.OBDELI ---
Weeks Gestation: 40 Anesthesia: Epidural Nuchal Cord: None Delayed Cord Clamping (45 sec): Yes Laceration: Vaginal (Periurethral, hemostasis achieved with minimal pressure) Estimated blood loss (mL): 50 : Female Female A Delivery Date: 05/27/18 Delivery Time: 20:08 Weight: 3.62 kg score (1 min): 8 score (5 min): 9
[2018-05-27] MEDS: Senna/Docusate Sodium 8.6/50 MG Tablet PO SCH (22:09)
--- NOTE | 2018-05-28 07:33 | P.PNOB ---
Subjective Post day: 1 Interval history: Patient is a 22-year-old G 2 P 2 delivered at 40 weeks and 1 days. Patient is day 1 after . Patient's pain is well-controlled. Patient reports eating and drinking without any nausea or vomiting. Patient reports minimal bleeding, similar to light period. Patient has not passed gas or had a bowel movements. Patient is walking without lower extremity pain or shortness of breath. Patient reports desire for contraception IUD and breast and bottlefeeding. Objective Vital Signs/I&O: Vital Signs 05/27/18 12:27 05/27/18 14:23 05/27/18 14:25 Temperature 97.5 F L Pulse Rate 90 86 Respiratory Rate 18 18 Blood Pressure 126/82 119/66 05/27/18 14:30 05/27/18 14:40 05/27/18 14:45 Temperature Pulse Rate 92 H 96 H 97 H Respiratory Rate Blood Pressure 129/70 129/74 121/63 05/27/18 14:50 05/27/18 14:55 05/27/18 15:10 Temperature Pulse Rate 95 H 95 H 85 Respiratory Rate Blood Pressure 125/71 110/80 05/27/18 15:20 05/27/18 15:25 05/27/18 15:30 Temperature Pulse Rate 98 H 84 82 Respiratory Rate 18 Blood Pressure 130/62 05/27/18 16:00 05/27/18 16:11 05/27/18 16:30 Temperature 98.6 F Pulse Rate 95 H 84 Respiratory Rate 18 Blood Pressure 110/68 109/65 05/27/18 17:00 05/27/18 17:30 05/27/18 17:45 Temperature Pulse Rate 94 H 86 Respiratory Rate 18 Blood Pressure 116/78 123/73 05/27/18 17:48 05/27/18 18:01 05/27/18 18:30 Temperature Pulse Rate 78 95 H 86 Respiratory Rate Blood Pressure 122/68 107/51 L 120/55 L 05/27/18 18:37 05/27/18 19:01 05/27/18 19:19 Temperature 98.7 F 98.2 F Pulse Rate 97 H Respiratory Rate 18 18 Blood Pressure 141/62 H 05/27/18 19:30 05/27/18 20:00 05/27/18 20:25 Temperature Pulse Rate 93 H 126 H 91 H Respiratory Rate 18 Blood Pressure 134/75 148/84 H 130/76 05/27/18 20:30 05/27/18 20:50 05/27/18 21:15 Temperature Pulse Rate 90 86 86 Respiratory Rate 0 L Blood Pressure 118/84 124/67 128/70 05/27/18 21:30 05/27/18 21:57 Temperature 98.2 F Pulse Rate 93 H 72 Respiratory Rate 18 Blood Pressure 128/67 131/67 Intake & Output 05/27/18 05/28/18 05/28/18 18:59 06:59 18:59 Intake Total 1000 / 1000 Balance 1000 / 1000 Weight 68.492 kg Intake: IV 1000 / 1000 LR 1000 mL Inj 1,000 ML @ 125 1000 / 1000 mls/hr IV.CONT .Q8H [facility] Rx#: [id number] Other: Weight On Admission 68.492 kg Result Diagrams: 05/27/18 13:30 Objective Remarks: GENERAL: Well-nourished, well-developed patient. CARDIOVASCULAR: Regular rate and rhythm without murmurs, gallops, or rubs. RESPIRATORY: Breath sounds equal bilaterally. No accessory muscle use. ABDOMEN/GI: Abdomen soft, non-tender. Fundus: Firm, non-tender at umbilicus. GENITOURINARY: Light to moderate bleeding. EXTREMITIES: No cyanosis or edema, non-tender, without signs of DVT. Medications and IVs: Active Medications Acetaminophen (Tylenol) 650 mg PO Q4H PRN PRN Reason: PAIN SCALE 1 TO 2 Al Hydroxide/Mg Hydroxide (Milk Of Magnesia Liq) 30 ml PO Q12H PRN PRN Reason: Mild Constipation Benzocaine (Americaine 20% Top [place]) 1 spray TOPICAL Q4H PRN PRN Reason: For Perineum Discomfort Last Admin: 05/27/18 22:07 Dose: 1 spray Ephedrine Sulfate (Ephedrine/Ns Syringe) 10 mg IV.PUSH UNSCH PRN PRN Reason: SEE LABEL COMMENTS Stop: 05/28/18 14:52 Fentanyl/Bupivacaine/Sodium Chlor (Fentanyl 2 Mcg-Bupiv 0.125% Epi) 150 mls @ 12 mls/hr EPIDURAL PRN PRN PRN Reason: for Labor Pain Oxytocin (Pitocin 30 Units/Ns 500 Ml Premix) 30 units in 500 mls @ 1 mls/hr IV.SIG TITRATE PRN; Protocol PRN Reason: For induction of labor Last Admin: 05/27/18 17:49 Dose: 1 milliunit/min, 1 mls/hr Oxytocin (Pitocin 30 Units/Ns 500 Ml Premix) 30 units in 500 mls @ 100 mls/hr IV.CONT UNSCH PRN PRN Reason: Heavy bleeding Ibuprofen (Motrin) 800 mg PO Q8H PRN PRN Reason: For Cramping Last Admin: 05/27/18 22:06 Dose: 800 mg Miscellaneous Information (Misc Information) 1 each OTHER UNSCH PRN PRN Reason: SEE LABEL COMMENTS Stop: 05/28/18 14:52 Miscellaneous Information (Misc Information) 1 each OTHER UNSCH PRN PRN Reason: SEE LABEL COMMENTS Stop: 05/28/18 14:52 Naloxone HCl (Narcan Inj) 0.1 mg IV.PUSH Q2M PRN PRN Reason: for opiate reversal Ondansetron HCl (Zofran Odt) 4 mg PO Q6H PRN PRN Reason: NAUSEA OR VOMITING Senna/Docusate Sodium (Patsy-Colace) 1 tab PO BID ROB Last Admin: 05/27/18 22:09 Dose: Not Given Sennosides (Senokot) 17.2 mg PO Q12H PRN PRN Reason: Moderate Constipation Sodium Chloride (Ns Flush) 2 ml IV.FLUSH BID ROB Sodium Chloride (Ns Flush) 2 ml IV.FLUSH PRN PRN PRN Reason: FLUSH AFTER USING IV ACCESS Witch Sophia/Glycerin (Tucks Pads) 1 applicatio RECTAL QID PRN PRN Reason: HEMORRHOIDS Last Admin: 05/27/18 22:07 Dose: 1 applicatio Assessment and Plan - Plan Patient is a 22-year-old G 2 P 2 delivered at 40 weeks and 1 days. Patient is day 1 after . Patient was counseled to do 6 weeks of pelvic rest. Patient was counseled to follow up in 6 weeks. Patient requested follow-up and contraception. --AF VSS --Continue routine care --Motrin and Acetaminophen when necessary for pain --Encourage OOB --Pelvic rest for 6 weeks will need follow-up appointment at that time. --Contraception: IUD --Anticipate discharge tomorrow DW Carmella Trivedi and Sean
[2018-05-28] MEDS: Senna/Docusate Sodium 8.6/50 MG Tablet PO SCH ×2 (08:53→23:00)
[2018-05-29] MEDS: Senna/Docusate Sodium 8.6/50 MG Tablet PO SCH (08:17)
[2018-05-29 09:11] VITALS: BP 113/60; PULSE 62; RESP 16; TEMP 98.9
--- NOTE | 2018-05-29 09:13 | P.PNOB ---
Subjective Post day: 2 Interval history: day # 2. AFVSS overnight. Pain well-controlled. Decreased lochia. Denies dysuria. No breast tenderness. She is feeding the baby via breast/ bottle. Appetite good. No nausea or vomiting. + flatus. + bowel movement. Ambulating well. Denies calf pain, shortness of breath, or cough. Otherwise, she is doing well this morning and has no other complaints. She inquired about her labial lacerations, why they were not sutured, and caring for them. Objective Vital Signs/I&O: Vital Signs 05/28/18 20:00 05/29/18 08:20 Temperature 97.9 F 98.9 F Pulse Rate 77 62 Respiratory Rate 18 16 Blood Pressure 105/60 113/60 Result Diagrams: 05/27/18 13:30 Objective Remarks: GENERAL: Well-nourished, well-developed patient. CARDIOVASCULAR: Regular rate and rhythm without murmurs, gallops, or rubs. RESPIRATORY: Breath sounds equal bilaterally. No accessory muscle use. ABDOMEN/GI: Abdomen soft, non-tender. Fundus: Firm, non-tender at umbilicus. GENITOURINARY: Light to moderate bleeding. inner labial lacerations bilaterally. well-healing and no active bleeding. EXTREMITIES: No cyanosis or edema, non-tender, without signs of DVT. Medications and IVs: Active Medications Acetaminophen (Tylenol) 650 mg PO Q4H PRN PRN Reason: PAIN SCALE 1 TO 2 Last Admin: 05/28/18 16:18 Dose: 650 mg Al Hydroxide/Mg Hydroxide (Milk Of Magnesia Liq) 30 ml PO Q12H PRN PRN Reason: Mild Constipation Benzocaine (Americaine 20% Top [place]) 1 spray TOPICAL Q4H PRN PRN Reason: For Perineum Discomfort Last Admin: 05/27/18 22:07 Dose: 1 spray Fentanyl/Bupivacaine/Sodium Chlor (Fentanyl 2 Mcg-Bupiv 0.125% Epi) 150 mls @ 12 mls/hr EPIDURAL PRN PRN PRN Reason: for Labor Pain Oxytocin (Pitocin 30 Units/Ns 500 Ml Premix) 30 units in 500 mls @ 1 mls/hr IV.SIG TITRATE PRN; Protocol PRN Reason: For induction of labor Last Admin: 05/27/18 17:49 Dose: 1 milliunit/min, 1 mls/hr Oxytocin (Pitocin 30 Units/Ns 500 Ml Premix) 30 units in 500 mls @ 100 mls/hr IV.CONT UNSCH PRN PRN Reason: Heavy bleeding Ibuprofen (Motrin) 800 mg PO Q8H PRN PRN Reason: For Cramping Last Admin: 05/29/18 04:51 Dose: 800 mg Naloxone HCl (Narcan Inj) 0.1 mg IV.PUSH Q2M PRN PRN Reason: for opiate reversal Ondansetron HCl (Zofran Odt) 4 mg PO Q6H PRN PRN Reason: NAUSEA OR VOMITING Senna/Docusate Sodium (Patsy-Colace) 1 tab PO BID [facility] Last Admin: 05/29/18 08:17 Dose: 1 tab Sennosides (Senokot) 17.2 mg PO Q12H PRN PRN Reason: Moderate Constipation Sodium Chloride (Ns Flush) 2 ml IV.FLUSH BID [facility] Last Admin: 05/29/18 08:17 Dose: Not Given Sodium Chloride (Ns Flush) 2 ml IV.FLUSH PRN PRN PRN Reason: FLUSH AFTER USING IV ACCESS Witch Sophia/Glycerin (Tucks Pads) 1 applicatio RECTAL QID PRN PRN Reason: HEMORRHOIDS Last Admin: 05/27/18 22:07 Dose: 1 applicatio Assessment and Plan - Plan Patient is a 22-year-old G 2 P 2 delivered at 40 weeks and 1 days. Patient is day 2 after . Patient was counseled to do 6 weeks of pelvic rest. Patient was counseled to follow up in 6 weeks. Patient requested follow-up and contraception. --AF VSS --Continue routine care --Motrin and Acetaminophen when necessary for pain --Encourage OOB --Pelvic rest for 6 weeks will need follow-up appointment at that time. --Discussed that her lacerations are healing well and not actively bleeding. Nurse discussed care of lacerations with patient. --Contraception: IUD --Anticipate discharge today DW Dr Epps
[2018-05-29] MEDS ORDERED: Diphtheria/Tetanus/Pertussis Vaccine Inj 0.5 ML Syringe IM ONE (11:30)
== END 2018-05-29 14:09 | disposition home or self-care (01) ==
LOC: HOBED 12:13 → H2E 12:59 → H1EA 22:35
PROVIDERS: ADMIT Obstetrics & Gynecology Maternal & Fetal Medicine; ATTEND Obstetrics & Gynecology Maternal & Fetal Medicine